=== PATIENT | female | born 1990 | race Caucasian/White ===

== ENCOUNTER → 2021-02-03 | Outpatient (CLI) | payer OTHER ==
[2021-02-03 15:03] LABS: microscopic required? NO
[2021-02-03 15:14] LABS: urine erythrocyte NEGATIVE (NEGATIVE)
[2021-02-03 15:17] LABS: PLATELET COUNT 236 x10^3mcL (179-408); RED CELL DISTRIBUTION WIDTH 13.3 % (12.3-17.7)
[2021-02-03 15:20] LABS: BASOPHIL % 2.6 % (0.2-1.3)
[2021-02-03 15:38] LABS: ALKALINE PHOSPHATASE 42 U/L (46-116); ALT/SGPT 18 U/L (14-59); AST/SGOT 14 U/L (15-37); BILIRUBIN TOTAL 0.4 mg/dL (0.20-1.00); CALCIUM 9.1 mg/dL (8.5-10.1); CARBON DIOXIDE 30.9 mmol/L (21-32); CHLORIDE SERUM 102 mmol/L (98-107); CHOLESTEROL 150 mg/dL (<200); CREATININE SERUM 0.9 mg/dL (0.6-1.0); FREE T4 1.01 ng/dL (0.76-1.46); GFR1 > 60 mL/min; GLUCOSE SERUM 86 mg/dL (74-106); POTASSIUM SERUM 3.7 mmol/L (3.5-5.1); SODIUM SERUM 142 mmol/L (136-145); TOTAL PROTEIN, SERUM 7.4 g/dL (6.4-8.2); TRIGLYCERIDES 81 mg/dL (<150)
[2021-02-03 15:43] LABS: CHOLESTEROL/HDL RATIO 2.3; HDL CHOLESTEROL 65 mg/dL (40-60)
== END | disposition home or self-care (01) ==
LOC: LB 14:55
DX: Z00.00 Encounter for general adult medical examination without abnormal findings (principal)
CPT/HCPCS: 84439